=== PATIENT | female | born 1970 | race Caucasian/White ===

== ENCOUNTER 2019-01-06 16:41 | Emergency (ER) | payer OTHER ==
[~2019-01-06] VITALS: Ht 162.6 cm; Wt 56.2 kg
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
--- OUTSIDE RECORDS SUMMARY | 2019-01-06 17:38 | XMS REPORT ---
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 Mackenzie Bhakhrani OD Unspecified disorder of eye movements Presbyopia - OU 367.4 Active Mackenzie Bhakhrani OD Presbyopia 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 V72.3 Active Janki Agee MD Special investigations and examinations - Gynecological examination Screening exam for breast cancer V76.10 Active Janki Agee MD Breast screening, unspecified Screening for bacteriuria V81.5 Active Janki Agee MD Screening for nephropathy BMI < 20 Active Trang Cortes MD Body Mass Index less than 19, adult Upper respiratory infection 465.9 Active Trang Cortes MD Acute upper respiratory infections of unspecified site Elevator Service Technician well woman exam ICD-V72.31 Inactive Trang Cortes MD Elevator Service Technician well woman exam V72.31 Resolved Trang Cortes MD Routine gynecological examination Medication List Medication Instructions Start Date Stop Date Generic Name NDC Status Provider Patient Instruction BACTRIM DS 800-160 MG ORAL TABLET 1 po Twice a Day x 7d SULFAMETHOXAZOLE-TRIMETHOPRIM 23004560834 Active Janki Agee MD Active MACROBID 100 MG ORAL CAPSULE 1 By Mouth Twice a Day x 7d NITROFURANTOIN MONOHYD MACRO 46645841027 Active Janki Agee MD Active 12 HOUR DECONGESTANT 120 MG ORAL TABLET EXTENDED RELEASE 12 HOUR Take 1 tablet by mouth twice daily as needed for congestion PSEUDOEPHEDRINE HCL 92475694226 Active Trang Cortes MD Active CETIRIZINE HCL 10 MG ORAL TABLET Take 1 tablet by mouth at bedtime CETIRIZINE HCL 74416678829 Active Trang Cortes MD Active NASONEX 50 MCG/ACT NASAL SUSPENSION 2 sprays each nostril every day MOMETASONE FUROATE 54548055889 Active Trang Cortes MD Active Vital Signs Date Name Value Unit Range Description blood pressure, diastolic 48 mm[Hg] BP cortes blood pressure, systolic 113 mm[Hg] BP sys pulse rate E&M 71 /min Heart rate Diagnostic Results Date Name Value Unit Range Description Lab Report: CBC With Differential/Platelet, Lipid Panel, RPR, Rfx Qn RPR ... - Hematology hematocrit, blood 40.7 % 34.0-46.6 Lab Report: Chlamydia/GC Amplification - Microbiology Neisseria gonorrhoeae DNA probe Negative Negative Lab Report: Urine Culture, Routine, Result - Urinalysis urine culture Escherichia coli Lab Report: CBC With Differential/Platelet, Lipid Panel, RPR, Rfx Qn RPR ... - Hematology neutrophils as percent of blood leukocytes 67 % basophils as percent of blood leukocytes 0 % Office Visit: Annual / Family Planning Female S13 - Urinalysis protein, urine, semiquantitative (dipstick) trace Lab Report: CBC With Differential/Platelet, Lipid Panel, RPR, Rfx Qn RPR ... - Serology rapid plasma reagin antibody, serum Non Reactive Non Reactive Office Visit: Annual / Family Planning Female S13 - Chemistry beta HCG, urine, semiquantitative negative Lab Report: CBC With Differential/Platelet, Lipid Panel, RPR, Rfx Qn RPR ... - Chemistry very low density lipoproteins 14 mg/dL 5-40 triglyceride, serum, fasting 68 mg/dL 0-149 Lab Report: CBC With Differential/Platelet, Lipid Panel, RPR, Rfx Qn RPR ... - Hematology mean corpuscular hemoglobin, RBC 32.4 pg 26.6-33.0 Office Visit: Annual / Family Planning Female S13 - Urinalysis leukocyte esterase, urine, by dipstick negative Lab Report: CBC With Differential/Platelet, Lipid Panel, RPR, Rfx Qn RPR ... - Hematology mean corpuscular hemoglobin concentration, RBC 33.7 G/DL % 31.5-35.7 Office Visit: Annual / Family Planning Female S13 - Urinalysis specific gravity, urine 1.010 Lab Report: CBC With Differential/Platelet, Lipid Panel, RPR, Rfx Qn RPR ... - Hematology erythrocyte (RBC) count 4.23 X10E6/UL 10*6/mm3 3.77-5.28 Office Visit: Annual / Family Planning Female S13 - Urinalysis nitrite, urine, semiquantitative negative Lab Report: CBC With Differential/Platelet, Lipid Panel, RPR, Rfx Qn RPR ... - Hematology hemoglobin, blood 13.7 g/dL 11.1-15.9 Lab Report: CBC With Differential/Platelet, Lipid Panel, RPR, Rfx Qn RPR ... - Serology hepatitis C antibody, serum <0.1 0.0-0.9 Office Visit: Annual / Family Planning Female S13 - Urinalysis urine color yellow Lab Report: CBC With Differential/Platelet, Lipid Panel, RPR, Rfx Qn RPR ... - Chemistry Absolute Neutrophils 5.3 X10E3/UL 10*3/uL 1.4-7.0 Office Visit: Annual / Family Planning Female S13 - Urinalysis bilirubin, urine negative Lab Report: CBC With Differential/Platelet, Lipid Panel, RPR, Rfx Qn RPR ... - Chemistry LDL cholesterol, serum 109 mg/dL 0-99 Lab Report: CBC With Differential/Platelet, Lipid Panel, RPR, Rfx Qn RPR ... - Hematology lymphocytes as percent of blood leukocytes 23 % mean corpuscular volume, RBC 96 fL 79-97 Office Visit: Annual / Family Planning Female S13 - Urinalysis glucose, urine, semiquantitative negative Lab Report: CBC With Differential/Platelet, Lipid Panel, RPR, Rfx Qn RPR ... - Chemistry HDL cholesterol, serum 51 mg/dL >39 Lab Report: CBC With Differential/Platelet, Lipid Panel, RPR, Rfx Qn RPR ... - Hematology basophil count, absolute 0.0 x10E3/uL 0.0-0.2 monocytes as percent of blood leukocytes 9 % Lab Report: CBC With Differential/Platelet, Lipid Panel, RPR, Rfx Qn RPR ... - Chemistry cholesterol, serum 174 mg/dL 100-199 Lab Report: CBC With Differential/Platelet, Lipid Panel, RPR, Rfx Qn RPR ... - Hematology Eosinophil Absolute Count 0.0 X10E3/UL 10*3/uL 0.0-0.4 eosinophils as percent of blood leukocytes 1 % Lab Report: Chlamydia/GC Amplification - Lab chlamydia DNA probe Negative Negative Office Visit: Annual / Family Planning Female S13 - Urinalysis blood in urine (hemoglobin) by dipstick negative appearance, urine clear Lab Report: CBC With Differential/Platelet, Lipid Panel, RPR, Rfx Qn RPR ... - Hematology red blood cell distribution width 13.0 % 12.3-15.4 Office Visit: Annual / Family Planning Female S13 - Urinalysis urobilinogen, urine, semiquantitative (dipstick) negative Lab Report: CBC With Differential/Platelet, Lipid Panel, RPR, Rfx Qn RPR ... - Hematology leukocyte count, blood 7.8 X10E3/UL 10*3/mm3 3.4-10.8 Office Visit: Annual / Family Planning Female S13 - Urinalysis pH, urine, semiquantitative 5.5 Lab Report: CBC With Differential/Platelet, Lipid Panel, RPR, Rfx Qn RPR ... - Hematology monocyte count, blood, automated 0.7 X10E3/UL 10*3/uL 0.1-0.9 Lab Report: CBC With Differential/Platelet, Lipid Panel, RPR, Rfx Qn RPR ... - Chemistry immature granulocytes, percentage of total cells, blood 0 % Lab Report: CBC With Differential/Platelet, Lipid Panel, RPR, Rfx Qn RPR ... - Hematology platelet count 216 X10E3/UL 10*3/mm3 150-379 Office Visit: Annual / Family Planning Female S13 - Urinalysis ketones, urine, by test strip negative Lab Report: CBC With Differential/Platelet, Lipid Panel, RPR, Rfx Qn RPR ... - Hematology lymphocyte count, blood, automated 1.8 X10E3/UL 10*3/mm3 0.7-3.1 Encounters Date Encounter Provider Code Facility 09:12:59 CDT Est Patient Exp Problem - 14213 Janki Agee MD CPT-25267 [facility] [employer] 10:49:33 CDT New Patient Exp Problem - 41978 Trang Cortes MD CPT-82685 [facility] Procedures Code Procedure Name Date Entry Date Standard Description CPT-32713 New Patient Intermediate Opth - 41210 13:49:43 CDT CPT-06305 Est Patient Well Exam (40 - 64 Yrs) - 72867 09:34:38 CDT
== END 2019-01-06 17:55 | disposition home or self-care (01) ==
LOC: FSED 16:41
DX: G89.11 Acute pain due to trauma (principal); M25.512 Pain in left shoulder; M25.511 Pain in right shoulder; V43.53XA Car driver injured in collision with pick-up truck in traffic accident, initial encounter; Y92.410 Unspecified street and highway as the place of occurrence of the external cause
CPT/HCPCS: 71046; 99283